=== PATIENT | male | born 1965 | race African-American/Black ===

== ENCOUNTER 2016-10-14 23:34 | Observation (INO) ==
[2016-10-15] MEDS ORDERED: ASPIRIN 325 MG TABLET PO STA (00:48)
[2016-10-15] MEDS ORDERED: SODIUM CHLORIDE 0.9% 500 ML IV STA (00:48)
[2016-10-15 00:59] LABS: Basophils # 0.1 10*3/uL (0.0-0.2); Basophils % 0.7 % (0.0-0.8); Eosinophils # 0.2 10*3/uL (0.0-0.87); Hematocrit 43.9 VOL% (42.0-52.0); Hemoglobin 14.4 GM/DL (14.0-18.0); Immature Granulocytes % 0.5 %; Immature Granulocytes Absolute 0.04 #; Lymphocytes # 2.5 10*3/uL (1.4-4.0); Lymphocytes % 27.7 % (21.2-54.2); Mean Corpuscular HGB Conc 32.8 GM/DL (32-36); Mean Corpuscular Hemoglobin 26 PG (27-34); Mean Corpuscular Volume 78.8 FL (87-102); Mean Platelet Volume 10.3 FL (9.6-12.0); Monocytes # 0.9 10*3/uL (0.11-0.8); Monocytes % 9.7 % (1.7-12.7); NRBC # 0.02 10*3/uL; Neutrophils # 5.2 10*3/uL (1.4-7.4); Neutrophils % 59.4 % (38.7-73.9); Platelet Count 291 T/CUMM (130-400); Red Blood Count 5.57 MC/CUMM (3.8-5.5); Red Cell Distribution Width 14.9 % (9.3-17.3); White Blood Count 8.8 T/CUMM (4-12)
[2016-10-15] MEDS ORDERED: ASPIRIN 325 MG TABLET ONE (01:01)
[2016-10-15 01:09] LABS: Free T4 (Free Thyroxine) 1.13 NG/DL (0.76-1.46); Magnesium 2.1 MG/DL (1.8-2.4)
[2016-10-15 01:16] LABS: Alanine Aminotransferase 58 U/L (16-61); Albumin 3.9 G/DL (3.4-5.0); Alkaline Phosphatase 58 U/L (45-117); Aspartate Amino Transferase 28 U/L (0-37); Bilirubin,Total < 0.39 MG/DL (0.2-1.0); Blood Urea Nitrogen 13 MG/DL (7-18); Calcium 8.7 MG/DL (8.5-10.1); Glucose 172 MG/DL (74-106); Osmolality,Calculated 284.3 MOS/KG (273-304); Potassium 3.3 MMOL/L (3.5-5.1); Sodium 141 MMOL/L (136-145); Total Protein 7.6 G/DL (6.4-8.3); Troponin I Only < 0.015 NG/ML (0.00-0.045)
--- NOTE | 2016-10-15 01:33 | Emergency Department Note ---
Azul Macedo Gwan, am scribing for, and in the presence of, Servando Renee MD 01 :05. Thelma Macedo Charles R, MD, personally performed the services described in this documentation, ascribed by Roseanne Liang in my presence, and it is both accurate and complete . Arrival - Arrival Chief Complaint: Arrhythmia/Palpitations Stated Complaint: bp up, heart high , light headed ED Nursing Triage Note: PT TO TRIAGE WITH COMPLAINT OF SHAKING AND FEELING LIKE HE HIS LIGHTHEADED. STATES THAT IT STARTED ABOUT AN HOUR AGO AND THAT HE FELT LIKE HIS HEART WAS BEATING FAST. DENIES ANY PAIN. STATES JUST LIGHTHEADED. STATES THAT HE RECENTLY HAD MEDICATION CHANGE IN DOSAGE WITH NO PROBLEMS. STARTED ON MECLIZINE FOR DIZZINESS AT LAST ER VISIT. Mode of Arrival: Wheelchair Limitations: No Limitations Source: Patient, Family, Old Records Reviewed, RN Notes Reviewed Time Seen by Provider: 10/15/16 00:31 - History of Present Illness HPI Narrative: Pt is a 51 y/o male who presents to the ED for further evaluation of shaking in bilateral hands and legs with an onset 2 hours [employer]ID[employer]NER. His associated sxs have been tachycardia, generalized weakness and lightheadedness. He said that his heart rate at home was 137. Patient was last seen in ED 10/04/2016 for similar reason and was given Meclinzine for dizziness. Patient confirmed that during his episode he feels near syncope, that he has had no change in fluid intake and that he had NML urine output. He denies lower back pain, fever, numbness, weight loss, SOB, chest pain or nausea. Onset (ago): hour(s) Consistency: constant Severity: moderate Allergies/Adverse Reactions: Allergies Allergy/AdvReac Type Severity Reaction Status Date / Time No Known Allergies Allergy Verified 08/26/16 17:13 Home Medications: Home Medications Medication Instructions Recorded Confirmed Type hydroCHLOROthiazide 25 mg PO DAILY #30 tablet 03/17/16 10/14/16 Rx [Hydrochlorothiazide] NIFEdipine XL TAB [Procardia Xl] 90 mg PO DAILY 08/26/16 10/14/16 History Meclizine [Antivert] 25 mg PO QID PRN #30 tablet 10/04/16 10/14/16 Rx Review of System - Review of System 12 point system: reviewed and no additional remarkable complaints except as stated - Review of System Constitutional: Present: as per HPI, other (shaking of both legs and hands) Cardiovascular: Present: as per HPI, syncope (near passing out), other (fast heart beat) Neurological: Present: as per HPI, headache, other (lightheadedness) Medical,Surgical,& Family Hx - Medical History Cardio: History of: Hypertension - Family History Family History: Reports;: Family Hypertension - Social History Smoking Status: Never smoker Frequency of Alcohol Use: None Type of Drug Use: None Exam Vital Signs: Vital Signs Temperature 97.6 F 10/14/16 23:34 Pulse Rate 107 H 10/15/16 01:30 Respiratory Rate 19 10/15/16 01:30 Blood Pressure 152/99 10/15/16 01:30 O2 Sat by Pulse Oximetry 97 10/15/16 01:30 - General General appearance: alert, in no apparent distress - Head Head exam: Present: atraumatic, normocephalic - Eye Eye exam: Present: normal appearance, PERRL, EOMI - ENT ENT exam: Present: normal oropharynx, mucous membranes moist, TM's normal bilaterally, normal external ear exam - Neck Neck exam: Present: full ROM, trachea midline. Absent: tenderness, meningismus , lymphadenopathy, thyromegaly - Chest Chest inspection: Present: symmetric chest wall rise. Absent: tenderness - Respiratory Respiratory exam: Present: normal lung sounds bilaterally. Absent: respiratory distress - Cardiovascular Cardiovascular exam: Present: tachycardia - Abdominal Exam Abdominal exam: Present: soft, normal bowel sounds. Absent: distention, tenderness, guarding, rebound - Extremities Exam Extremities exam: Present: other (shaking in bilateral hands) - Back Exam Back exam: Present: full ROM. Absent: tenderness - Neurological Exam Neurological exam: Present: other (No neuro deficit noted). Absent: motor sensory deficit - Psychiatric Psychiatric exam: Present: normal affect, normal mood - Skin Skin exam: Present: warm, dry, intact, normal color Course Course Narrative: Patient is orthostatic positive - Consultations Consultation #1: Dr. Forbes will admit patient Time: 02:46 Results - Labs CBC & BMP: 10/15/16 00:28 10/15/16 00:28 Lab Results: I have reviewed the patients labs Labs: Laboratory Tests 10/15/16 00:28 Sodium 141 Potassium 3.3 L Chloride 101 Carbon Dioxide 26 Anion Gap 17.3 H BUN 13 Creatinine 1.10 Glucose 172 H Globulin 3.7 H Albumin/Globulin Ratio 1.0 L TSH 3rd Generation 5.720 H Laboratory Tests 10/15/16 00:28 WBC 8.8 RBC 5.57 H Hgb 14.4 Hct 43.9 MCV 78.8 L MCH 26 L Plt Count 291 [place] # (Auto) 0.9 H Laboratory Tests 10/15/16 00:28 Urine pH 6.0 Ur Specific [place] 1.012 Urine Urobilinogen < 2.0 H Urine RBC 1 Urine WBC 1 Hyaline Casts 3 Urine Mucus Occasional Disposition Clinical Impression: Palpitations, Near syncope, shaking of extremities nonspecific, Clonus, Weakness generalized Case discussed with: patient, patient's family Disposition: Still a Patient Condition: Stable Time of Disposition: 02:47
[2016-10-15 02:27] LABS: Apearance,Urine CLEAR (Clear); Bilirubin,Urine Negative (Negative); Blood, Urine Negative (Negative); Glucose,Urine (UA) Negative (Negative); Hyaline Casts,Urine 3 /LPF (0-3); Ketones,Urine Negative (Negative); Mucus,Urine Occasional /LPF (Occasional); Nitrite,Urine Negative (Negative); Protein,Urine Negative; RBC,Urine 1 /HPF (0-4); Urine Color Yellow (Yellow); Urine Specific Gravity 1.012 (1.001-1.035); Urine Urobilinogen < 2.0 EU/DL (0.2-1.0); WBC,Urine 1 /HPF (0-6)
[2016-10-15 02:38] LABS: Barbiturates Screen,Urine Negative (Negative); Benzodiazepines Screen,Urine Negative (Negative); Cannabinoid Screen,Urine Negative (Negative); Opiate Screen,Urine Negative (Negative); Phencyclidine Screen,Urine Negative (Negative)
--- NOTE | 2016-10-15 03:36 | Hospitalist History & Physical ---
Assessment and Plan (1) Palpitations Status: Acute Current Visit: Yes (2) Near syncope Status: Acute Current Visit: Yes (3) Clonus Status: Acute Current Visit: Yes (4) Weakness generalized Status: Acute Assessment and plan: Plan for this patient 1# admit the patient to monitored bed #2 continue home meds appropriate #3 hydration #4 neurology evaluation for the shaking Current Visit: Yes History of Present Illness Chief complaint: heart racing leg weakness History of present illness: Mr. Logan is a 51 year old male past medical history significant for hypertension presents to our hospital tonight. Patient reports that he felt like his heart rate was racing. Patient noticed that when he sits still open. If feel a little lightheaded at the time. Patient's leg seemed weak bilaterally and they started shaking. Patient warned event monitor but it never showed up anything. Patient reports his blood pressure fluctuates significantly at times and tonight his legs were shaking. Patient had a recent diagnosis of vertigo when he came up to our hospital further evaluation I was consulted to admit him. Home Medications Medication Instructions Recorded Confirmed Type hydroCHLOROthiazide 25 mg PO DAILY #30 tablet 03/17/16 10/14/16 Rx [Hydrochlorothiazide] NIFEdipine XL TAB [Procardia Xl] 90 mg PO DAILY 08/26/16 10/14/16 History Meclizine [Antivert] 25 mg PO QID PRN #30 tablet 10/04/16 10/14/16 Rx Allergies Allergy/AdvReac Type Severity Reaction Status Date / Time No Known Allergies Allergy Verified 08/26/16 17:13 Medical,Surgical,& Family Hx - Medical History Cardio: History of: Hypertension - Surgical History Surgical History: noncontributory - Family History Family History: Reports;: Family Hypertension - Social History Smoking Status: Never smoker Frequency of Alcohol Use: None Type of Drug Use: None 12 point system: reviewed and no additional remarkable complaints except as stated Exam - Constitutional Vitals: Period Temp Pulse Resp BP Sys/Sen Pulse Ox Last 24 Hr 97.6 F 95-146 19-22 135-152/85-99 97-97 - General General appearance: alert, in no apparent distress - Head Head exam: Present: atraumatic, normocephalic - Eye Eye exam: Present: normal appearance, PERRL, EOMI - ENT ENT exam: Present: normal oropharynx, mucous membranes moist, TM's normal bilaterally, normal external ear exam - Neck Neck exam: Present: full ROM, trachea midline. Absent: tenderness, meningismus , lymphadenopathy, thyromegaly - Chest Chest inspection: Present: symmetric chest wall rise. Absent: tenderness - Respiratory Respiratory exam: Present: normal lung sounds bilaterally. Absent: respiratory distress - Cardiovascular Cardiovascular exam: Present: tachycardia - Abdominal Exam Abdominal exam: Present: soft, normal bowel sounds. Absent: distention, tenderness, guarding, rebound - Extremities Exam Extremities exam: Present: shaking in upper extremity noted - Back Exam Back exam: Present: full ROM. Absent: tenderness - Neurological Exam Neurological exam: Present: other (No neuro deficit noted). Absent: motor sensory deficit - Psychiatric Psychiatric exam: Present: normal affect, normal mood - Skin Skin exam: Present: warm, dry, intact, normal color Results - Labs CBC & BMP: 10/15/16 00:28 10/15/16 00:28
[2016-10-15] MEDS ORDERED: ACETAMINOPHEN 325 MG TABLET PO PRN (03:43)
[2016-10-15] MEDS ORDERED: ONDANSETRON 4 MG/2 ML VIAL IV PRN (03:43)
[2016-10-15] MEDS ORDERED: MECLIZINE 25 MG TABLET PO PRN (03:51)
[2016-10-15] MEDS: SODIUM CHLORIDE 0.9% 1,000 ML IV SCH ×2 (04:20→16:04)
--- NOTE | 2016-10-15 06:06 | CT Report ---
Referring physician: Servando Renee Exam: CT brain without contrast Date: October 15, 2016 Comparison: CT head without contrast October 04, 2016 Reason: Dizziness, near syncope The patient was an Emergency Department patient on October 15, 2016. Preliminary report was provided by [facility]. Technique: Axial images of the head were obtained without the use of contrast. Total DLP was 1012.1 mGy*cm. Findings: There is minimal generalized cerebral atrophy/volume loss. No hydrocephalus or midline shift is present. There is no evidence of recent intracranial hemorrhage, abnormal mass effect or an acute infarction. No acute osseous process is seen. The mastoid air cells and visualized paranasal sinuses are clear. Impression: No acute intracranial abnormality is identified. The CT exam was performed using one or more of the following dose reduction techniques: Automated exposure control and adjustment of the mA and/or kV according to patient size. PROCEDURE INTERPRETED AT [facility] DEPARTMENT OF RADIOLOGY Final Report Signed by: Dr. Omega Ford
--- NOTE | 2016-10-15 06:46 | XRay Report ---
Referring Physician: Servando Renee Exam: XR chest 1V portable Date: October 15, 2016 at 1:02 AM Reason: Shortness of breath Comparison: Chest one view portable October 04, 2016 Findings: The cardiac silhouette is normal in size. No focal consolidation, pneumothorax or pleural effusion is identified. Note is made of mild persistent elevation of the right hemidiaphragm. No acute osseous process is seen. Impression: No acute cardiopulmonary process is identified. PROCEDURE INTERPRETED AT [facility] DEPARTMENT OF RADIOLOGY Final Report Signed by: Dr. Omega Ford
[2016-10-15 07:31] LABS: Calcium 8.6 MG/DL (8.5-10.1); Osmolality,Calculated 281.1 MOS/KG (273-304); Potassium 3.4 MMOL/L (3.5-5.1); Thyroid Stimulating Hormone 6.42 uIU/ml (0.358-3.74)
--- NOTE | 2016-10-15 07:51 | Ultrasound Report ---
Referring physician: Servando Renee Exam: Carotid ultrasound Date: October 15, 2016 Comparison: None Reason: Generalized weakness Technique: Duplex scan of the carotid arteries performed using B-Mode/grayscale imaging and Doppler spectral analysis and color flow. Ultrasound images were captured and stored. Findings: There is minimal plaque at the carotid bifurcations. The right ICA measures 0.42 cm in diameter, and the left ICA measures 0.40 cm in diameter. The peak systolic velocities are as follows: Right CCA: 84 cm/s Right proximal ICA: 67 cm/s Right distal ICA: 83 cm/s Right ECA: 48 cm/s Left CCA: 88 cm/s Left proximal ICA: 59 cm/s Left distal ICA: 74 cm/s Left ECA: 39 cm/s The peak systolic ICA/CCA velocity ratios are as follows: 1.0 on the right and 0.8 on the left. Antegrade flow is present within both vertebral arteries. Impression: 1. Less than 50% stenosis of both cervical internal carotid arteries. 2. The Society of Radiologists in Ultrasound consensus conference criteria was used. The Ultrasound images were captured and stored. PROCEDURE INTERPRETED AT [facility] DEPARTMENT OF RADIOLOGY Final Report Signed by: Dr. Omega Ford
[2016-10-15] MEDS ORDERED: hydroCHLOROthiazide 25 MG TABLET PO SCH (09:00)
[2016-10-15] MEDS ORDERED: ENOXAPARIN 40 MG/0.4 ML SYRINGE SUBCUT SCH (09:00)
[2016-10-15] MEDS ORDERED: POTASSIUM CHLORIDE 20 MEQ TABLET PO SCH (09:00)
[2016-10-15] MEDS ORDERED: PANTOPRAZOLE 40 MG TABLET PO SCH (09:00)
[2016-10-15] MEDS ORDERED: ENOXAPARIN 40 MG/0.4 ML SYRINGE ONE (09:09)
[2016-10-15] MEDS ORDERED: hydroCHLOROthiazide 25 MG TABLET ONE (09:09)
[2016-10-15] MEDS ORDERED: POTASSIUM CHLORIDE 20 MEQ TABLET PO ONE (09:09)
[2016-10-15] MEDS ORDERED: PANTOPRAZOLE 40 MG TABLET PO ONE (09:09)
--- NOTE | 2016-10-15 12:01 | Magnetic Resonance Report ---
MRI brain without contrast Indication: Tremors Comparison: CT brain 15 October 2016 Technique: Axial sagittal and coronal imaging of the brain is performed without contrast. T1, T2, FLAIR and diffusion weighted sequences are performed. Findings: No evidence of restricted diffusion seen. No evidence of intracranial hemorrhage, mass, mass effect or midline shift is seen. There is moderate diffuse cerebral atrophy. There are few small foci of white matter T2 signal hyperintensity present. Remaining brain parenchyma has normal signal and differentiation. The ventricles and cisterns are appropriate in caliber. Posterior fossa, mid brain and pituitary gland appear within normal limits. No evidence of cranial or skull base abnormality seen. Impression: No evidence of acute process demonstrated. Moderate diffuse cerebral atrophy. Few foci white matter T2 signal hyperintensity, nonspecific in appearance. PROCEDURE INTERPRETED AT [facility] DEPARTMENT OF RADIOLOGY Final Report Signed by: Dr. Oren Regalado
--- NOTE | 2016-10-15 15:01 | EKG Report ---
Stationary ECG Study [facility] ER Test Date: 10/14/2016 11:54:12 PM Pat Name: LILLY BAUER Department: Room: 274 Gender: M Tint Layer: As : 1965 Requested by: Servando Agrawal Order Number: [id number] Reading MD: RUBA CEBALLOS Intervals [place] Rate: 109 P: 65 ND: 186 QRS: -4 QRSD: 85 T: 48 QT: 349 QTc: 413 Interpretive Statements SINUS TACHYCARDIA NONSPECIFIC T WAVE ABNORMALITY Electronically Signed On 10-15-16 18:04:08 J2EE ENGINEER by RUBA CEBALLOS [email or web address]
--- NOTE | 2016-10-15 15:52 | Neurology Consult Note ---
History of Present Illness History of present illness: Mr. Logan is a 51 year old right-handed -Faro[place] gentleman with past medical history significant for hypertension presents to our hospital last night. Patient reports that he felt like his heart rate was racing. Patient noticed that when he sits still he feel a little lightheaded at the time. Patient's leg seemed weak bilaterally and reported some shaking. Patient warned event monitor but it never showed up anything. Patient reports his blood pressure fluctuates significantly at times. Patient had a recent diagnosis of vertigo. MRI of the brain reveals no acute abnormalities. Patient seems to be doing much better now. No focal neurological deficits reported. Home Medications Medication Instructions Recorded Confirmed Type hydroCHLOROthiazide 25 mg PO DAILY #30 tablet 03/17/16 10/15/16 Rx [Hydrochlorothiazide] NIFEdipine XL TAB [Procardia Xl] 90 mg PO DAILY 08/26/16 10/15/16 History Meclizine [Antivert] 25 mg PO QID PRN #30 tablet 10/04/16 10/15/16 Rx Allergies Allergy/AdvReac Type Severity Reaction Status Date / Time No Known Allergies Allergy Verified 08/26/16 17:13 12 point system: reviewed and no additional remarkable complaints except as stated Medical,Surgical,& Family Hx - Medical History Cardio: History of: Hypertension - Family History Family History: Reports;: Family Hypertension - Social History Smoking Status: Never smoker Frequency of Alcohol Use: None Type of Drug Use: None Exam - Constitutional Vitals: Period Temp Pulse Resp BP Sys/Sen Pulse Ox Last 24 Hr 97.9 F-98.7 F 60-94 12-18 125-157/67-105 92-100 Exam: GENERAL: Patient is in no acute distress. NECK: Neck is supple. There is no JVD. No carotid bruits present. No thyroid masses. CVS: First and second heart sounds are normal. There is no S3 present. Regular rate and rhythm. RESPIRATORY: Lungs are clear to auscultation without any rales or rhonchi. ABDOMEN: Soft and non-tender. Bowel sounds are present. There is no hepatosplenomegaly. EXT: There is no palpable edema. Peripheral pulses are present. Skin: No rashes Central Nervous system: General: Alert, awake and Oriented x 3 Speech: Fluent Comprehension: Intact and normal Facial expressions: Normal Cranial Nerves: CN1/Olfactory: Normal CN II/ Optic: Normal, Visual Kruger unreliable CN III, and : SOFIYA & EOMI CN V: Normal & intact CN VII: face is symmetric CNVIII: Normal CN XI/X/XI/XII: Intact and Normal Motor: Bulk and Tone is normal. Strength in the right 5/5 Strength in the left 5/5 Sensory: Grossly intact for all the modalities of PP, LT and temp sense Reflexes: 1+ and symmetrical Cerebellar function: Normal finger to nose and heel to wills testing. Gait: Normal Results - Labs CBC & BMP: 10/15/16 00:28 10/15/16 06:51 Assessment and Plan (1) Weakness generalized Status: Acute Assessment and plan: This is likely multifactorial. No evidence of stroke, TIAs, epilepsy or seizures. No evidence of any other primary DOOR CUTTER pathology either. No further neurological intervention needed. Signoff please call when necessary Current Visit: Yes
[2016-10-15 16:15] VITALS: BP 149/90
--- NOTE | 2016-10-15 17:43 | Discharge Summary ---
Hospital Course - Hospital Course Hospital Course: Mr. Logan is a 51 year old male past medical history significant for hypertension presents to our hospital this am. Patient reports that he felt like his heart rate was racing. Patient noticed that when he sits still open. If feel a little lightheaded at the time. Patient's leg seemed weak bilaterally and they started shaking. Patient warned event monitor but it never showed up anything. Patient reports his blood pressure fluctuates significantly at times and tonight his legs were shaking. Patient had a recent diagnosis of vertigo when he came up to our hospital further evaluation I was consulted to admit him. She was admitted. I did order an MRI of his brain. He was essentially negative as far strokes. Neurology saw him and found no deficits. Also some indication of TIAs seizures or any other neurological problems. Patient found to be hypokalemia replace that patient's mental maximum benefit from this hospitalization I'm discharging him home tonight - Time spent with patient Time with patient DS: Greater than 30 minutes Diagnosis - Discharge Diagnosis (1) Palpitations Status: Acute (2) Near syncope Status: Acute (3) Clonus Status: Acute (4) Weakness generalized Status: Acute Discharge Plan - Discharge Data Disposition: Disch To Home/Self Care Condition at Discharge: Stable Discharge Diet: advance to your usual diet Activity: resume usual activities as tolerated - Discharge Medications Continue hydroCHLOROthiazide [Hydrochlorothiazide] 25 mg PO DAILY #30 tablet Meclizine [Antivert] 25 mg PO QID PRN #30 tablet PRN Reason: dizziness/vertigo NIFEdipine XL TAB [Procardia Xl] 90 mg PO DAILY - Follow Up or Referral - Forms/Instructions Additional Discharge Instructions: Recommend that he follows up with his primary care doctor in 1 month and have his thyroid function evaluated Exam - Constitutional Vitals: Period Temp Pulse Resp BP Sys/Sen Pulse Ox Last 24 Hr 97.9 F-99.3 F 60-102 12-20 125-157/67-105 92-100 No change in physical exam from earlier this day Discharge Results Labs on day of discharge: Labs from last 24 hours 10/15/16 10/15/16 06:51 06:51 Sodium 142 Potassium 3.4 L Chloride 105 Carbon Dioxide 27 Anion Gap 13.4 BUN 10 Creatinine 0.80 GFR Calculation 156 BUN/Creatinine Ratio 12.00 Glucose 91 Calculated Osmolality 281.1 Calcium 8.6 Free T4 1.05 TSH 3rd Generation 6.420 H DS: Provider Date of admission: 10/15/16 03:43 Primary care physician: . No PCP Attending physician on admission: García Forbes MD Discharging clinician: García Forbes MD
[2016-10-16] MEDS ORDERED: LEVOTHYROXINE 25 MCG TABLET PO SCH (07:00)
== END 2016-10-15 18:14 | disposition home or self-care (01) ==
LOC: N.EDINP 23:34 → N.ED 23:34 → N.TELES 10-15 12:21
PROVIDERS: ADMIT Internal Medicine; ATTEND Internal Medicine